=== PATIENT | female | born 1940 | race African-American/Black ===

== ENCOUNTER → 2019-04-19 | Outpatient (CLI) | payer BC, MEDICARE | END | disposition home or self-care (01) | LOC: MRI 10:02 | DX: M51.16 Intervertebral disc disorders with radiculopathy, lumbar region (principal); M47.26 Other spondylosis with radiculopathy, lumbar region; M41.86 Other forms of scoliosis, lumbar region | CPT/HCPCS: 72148 ==

== ENCOUNTER → 2020-02-07 | Outpatient (CLI) | payer BC | END | disposition home or self-care (01) | LOC: MRI 10:23 | PROVIDERS: ATTEND Specialist | DX: I67.82 Cerebral ischemia (principal); M50.223 Other cervical disc displacement at C6-C7 level; R51.9 Headache, unspecified | CPT/HCPCS: 70544; 70551; 70553; 72141 ==

== ENCOUNTER 2021-03-23 12:12 | Inpatient (IN) | payer MEDICARE, BC ==
[~2021-03-23] VITALS: Ht 165.1 cm; Wt 60.0 kg
[2021-03-23] MEDS ORDERED: SODIUM CHLORIDE 0.9% 1,000 ML IV ONE ×2 (12:45→16:45)
[2021-03-23 13:54] LABS: BASOPHILS % 0.3 % (0.0-2.0); EOSINOPHILS % 0.3 % (0.0-5.0); HEMATOCRIT. 34.5 % (36.0-48.0); LYMPHOCYTES % 7.4 % (20.0-50.0); MEAN CORPUSCULAR HEMOGLOBIN 26.3 pg (28.0-32.0); MEAN CORPUSCULAR VOLUME 82.4 fL (81.0-99.0); MEAN PLATELET VOLUME 10.5 fl (7.4-10.4); MONOCYTES % 7.2 % (2.0-8.0); NEUTROPHILS % 84.8 % (40.0-76.0); PLATELET 264 x1000/uL (130-400); RED BLOOD CELL COUNT 4.19 mill/uL (4.2-5.4); RED CELL DISTRIBUTION WIDTH 15.3 % (11.6-14.6)
[2021-03-23 14:01] LABS: ETHANOL BLOOD < 10 mg/dL
[2021-03-23 14:15] LABS: CHLORIDE 103 mEq/L (98-107)
[2021-03-23 14:25] LABS: T4 FREE 1.11 ng/dL (0.76-1.46)
[2021-03-23 14:33] LABS: CREATINE KINASE 2736 IU/L (26-192)
[2021-03-23 14:40] LABS: CHLORIDE 104 mEq/L (98-107)
[2021-03-23 14:59] LABS: CLARITY URINE CLEAR (CLEAR); COLOR URINE YELLOW (YELLOW); KETONES URINE TRACE (NEGATIVE); LEUKOCYTE ESTERASE URINE NEGATIVE (NEGATIVE); NITRITE URINE NEGATIVE (NEGATIVE); OCCULT BLOOD URINE 1+ (NEGATIVE); PH URINE 5.5 (4.5-8.0); PROTEIN URINE 2+ (NEGATIVE); SPECIFIC GRAVITY URINE 1.014 (1.005-1.030); UROBILINOGEN URINE 0.2 E.U./dL (0.2-1.0)
[2021-03-23 15:12] LABS: *AMPHETAMINES SCREEN URINE NEGATIVE (NEGATIVE); *BARBITURATES SCREEN URINE NEGATIVE (NEGATIVE); *BENZODIAZEPINES SCREEN URINE NEGATIVE (NEGATIVE); *COCAINE SCREEN URINE NEGATIVE (NEGATIVE); METHADONE URINE SCREEN NEGATIVE (NEGATIVE)
[2021-03-23 15:13] LABS: CANNABINOID URINE SCREEN NEGATIVE (NEGATIVE); OPIATES URINE SCREEN NEGATIVE (NEGATIVE); PHENCYCLIDINE URINE SCREEN NEGATIVE (NEGATIVE)
[2021-03-23] MEDS ORDERED: AZITHROMYCIN 500MG/250ML 250 ML IV ONE (17:00)
[2021-03-23] MEDS ORDERED: CEFTRIAXONE 1 G PREMIX 50 ML IV ONE (17:00)
[2021-03-23] MEDS ORDERED: CLONIDINE 0.1MG TABLET PO PRN (17:30)
[2021-03-23] MEDS ORDERED: ONDANSETRON HCL 4MG/2ML INJ IV PRN (17:30)
[2021-03-23] MEDS ORDERED: GUAIFENESIN 200MG/10ML SUGAR FREE UDC PO PRN (17:30)
[2021-03-23] MEDS ORDERED: DOCUSATE SODIUM 100MG CAPSULE PO PRN (17:30)
[2021-03-23] MEDS ORDERED: IPRATROPIUM/ALBUTEROL 0.5-3(2.5)MG/3ML NEB HHN PRN (17:30)
[2021-03-23] MEDS ORDERED: PIPERACILLIN/TAZ 3.375G PREMIX 50 ML IV NR (17:47)
[2021-03-23 18:28] LABS: INR 1.1; PROTHROMBIN TIME 11.7 sec (9.6-11.0)
[2021-03-23] MEDS ORDERED: ENOXAPARIN 60MG/0.6ML SYR SUBCUT SCH (19:00)
[2021-03-23] MEDS: LACTATED RINGERS 1,000 ML IV SCH (20:03)
[2021-03-23] MEDS ORDERED: PIPERACILLIN/TAZOBACTAM 3.375GM/50ML PREMIX IV SCH (22:00)
[2021-03-24] MEDS: LORAZEPAM 2MG/ML CPJ IV PRN (00:53)
[2021-03-24 01:42] VITALS: BP 146/72
[2021-03-24 04:00] VITALS: BP 134/59
[2021-03-24 05:58] LABS: BASOPHILS % 0.1 % (0.0-2.0); EOSINOPHILS % 0.2 % (0.0-5.0); HEMATOCRIT. 27.3 % (36.0-48.0); HEMOGLOBIN. 9.3 g/dL (12.0-16.0); LYMPHOCYTES % 13.3 % (20.0-50.0); MEAN CORPUSCULAR HEMOGLOBIN 27.5 pg (28.0-32.0); MEAN CORPUSCULAR VOLUME 81.2 fL (81.0-99.0); MEAN PLATELET VOLUME 10.4 fl (7.4-10.4); MONOCYTES % 9.7 % (2.0-8.0); NEUTROPHILS % 76.7 % (40.0-76.0); PLATELET 215 x1000/uL (130-400); RED BLOOD CELL COUNT 3.37 mill/uL (4.2-5.4); RED CELL DISTRIBUTION WIDTH 15.1 % (11.6-14.6)
[2021-03-24] MEDS ORDERED: ENOXAPARIN 60MG/0.6ML SYR SUBCUT SCH (06:00)
[2021-03-24] MEDS ORDERED: PIPERACILLIN/TAZOBACTAM 3.375G in DEXT 5% WATER 50ML IV SCH (06:00)
[2021-03-24] MEDS: LACTATED RINGERS 1,000 ML IV SCH ×5 (06:53→23:04)
[2021-03-24 08:04] VITALS: BP 148/78
[2021-03-24] MEDS: PIPERACILLIN/TAZOBACTAM 3.375G in DEXT 5% WATER 50ML IV SCH ×3 (08:35→21:20)
[2021-03-24 11:45] VITALS: BP 147/65
[2021-03-24 15:45] VITALS: BP 146/68
[2021-03-24] MEDS: ENOXAPARIN 60MG/0.6ML SYR SUBCUT SCH (18:02)
[2021-03-24 20:00] VITALS: BP 156/75
[2021-03-25] VITALS: BP 147/58
[2021-03-25 04:00] VITALS: BP 165/73
[2021-03-25] MEDS: PIPERACILLIN/TAZOBACTAM 3.375G in DEXT 5% WATER 50ML IV SCH ×2 (06:02→13:46)
[2021-03-25] MEDS: ENOXAPARIN 60MG/0.6ML SYR SUBCUT SCH ×2 (06:03→18:00)
[2021-03-25 08:00] VITALS: BP 174/76
[2021-03-25] MEDS: HYDRALAZINE 20MG/ML VIAL IV PRN (09:24)
[2021-03-25 12:00] VITALS: BP 142/74
[2021-03-25] MEDS: LACTATED RINGERS 1,000 ML IV SCH ×2 (13:46→13:47)
[2021-03-25 16:47] LABS: BASOPHILS % 0.8 % (0.0-2.0); EOSINOPHILS % 5.9 % (0.0-5.0); HEMATOCRIT. 29.1 % (36.0-48.0); HEMOGLOBIN. 9.6 g/dL (12.0-16.0); LYMPHOCYTES % 21.9 % (20.0-50.0); MEAN CORPUSCULAR HEMOGLOBIN 26.9 pg (28.0-32.0); MEAN CORPUSCULAR VOLUME 81.7 fL (81.0-99.0); MEAN PLATELET VOLUME 9.7 fl (7.4-10.4); MONOCYTES % 10.4 % (2.0-8.0); PLATELET 205 x1000/uL (130-400); RED BLOOD CELL COUNT 3.56 mill/uL (4.2-5.4); RED CELL DISTRIBUTION WIDTH 15.2 % (11.6-14.6)
[2021-03-25 17:22] LABS: CHLORIDE 108 mEq/L (98-107)
[2021-03-25 17:31] LABS: CREATINE KINASE 378 IU/L (26-192)
[2021-03-25] MEDS: HYDRALAZINE HCL 10MG TABLET PO SCH (23:01)
[2021-03-26] VITALS: BP 160/71
[2021-03-26 04:00] VITALS: BP 160/71
[2021-03-26] MEDS: ENOXAPARIN 60MG/0.6ML SYR SUBCUT SCH (05:19)
[2021-03-26] MEDS: HYDRALAZINE HCL 10MG TABLET PO SCH (05:20)
[2021-03-26 06:44] LABS: BASOPHILS % 0.6 % (0.0-2.0); EOSINOPHILS % 5.6 % (0.0-5.0); HEMATOCRIT. 29.2 % (36.0-48.0); HEMOGLOBIN. 9.7 g/dL (12.0-16.0); LYMPHOCYTES % 20.1 % (20.0-50.0); MEAN CORPUSCULAR HEMOGLOBIN 26.9 pg (28.0-32.0); MEAN CORPUSCULAR VOLUME 81.1 fL (81.0-99.0); MEAN PLATELET VOLUME 10.1 fl (7.4-10.4); MONOCYTES % 13.3 % (2.0-8.0); NEUTROPHILS % 60.4 % (40.0-76.0); PLATELET 215 x1000/uL (130-400); RED CELL DISTRIBUTION WIDTH 15.7 % (11.6-14.6)
[2021-03-26 07:50] LABS: CHLORIDE 106 mEq/L (98-107)
[2021-03-26 08:00] VITALS: BP 136/82
[2021-03-26 08:05] LABS: CREATINE KINASE 230 IU/L (26-192)
[2021-03-26 12:00] VITALS: BP 143/63
[2021-03-26] MEDS ORDERED: POTASSIUM CHLORIDE 20MEQ TABLET SR PO SCH (12:15)
[2021-03-26 16:00] VITALS: BP 159/80
[2021-03-26] MEDS: HYDRALAZINE HCL 25MG TABLET PO SCH ×2 (16:56→21:44)
[2021-03-26 17:32] LABS: CREATINE KINASE 173 IU/L (26-192)
[2021-03-26 17:33] LABS: CREATINE KINASE MB FRACTION < 1.0 ng/mL (0.5-3.6)
[2021-03-26 20:00] VITALS: BP 165/75
[2021-03-26] MEDS: LORAZEPAM 2MG/ML CPJ IV PRN (21:44)
[2021-03-27] VITALS (16 sets, daily range): BP systolic 147–177; BP diastolic 67–81
[2021-03-27] MEDS ORDERED: HALOPERIDOL LACTATE 5MG/ML VIAL IM SCH (01:00)
[2021-03-27] MEDS: HYDRALAZINE 20MG/ML VIAL IV PRN (03:32)
[2021-03-27 08:07] LABS: INR 1.1; PROTHROMBIN TIME 11.5 sec (9.6-11.0)
[2021-03-27 08:10] LABS: HEMATOCRIT. 28.1 % (36.0-48.0); HEMOGLOBIN. 9.8 g/dL (12.0-16.0); MEAN CORPUSCULAR HEMOGLOBIN 28.2 pg (28.0-32.0); MEAN CORPUSCULAR VOLUME 81.1 fL (81.0-99.0); MEAN PLATELET VOLUME 10.2 fl (7.4-10.4); PLATELET 216 x1000/uL (130-400); RED BLOOD CELL COUNT 3.46 mill/uL (4.2-5.4); RED CELL DISTRIBUTION WIDTH 15.4 % (11.6-14.6)
[2021-03-27 08:19] LABS: TOTAL IRON BINDING CAPACITY 454 ug/dL (250-450)
[2021-03-27 08:45] LABS: VITAMIN B12 SERUM 1419 pg/mL (211-911)
[2021-03-27] MEDS ORDERED: SODIUM BICARBONATE 4% (2.4MEQ) 5ML VIAL IV ONE (11:14)
[2021-03-27] MEDS ORDERED: LIDOCAINE HCL 1% 20ML VIAL (Pyxis) INJ ONE (11:14)
[2021-03-27] MEDS ORDERED: FENTANYL CITRATE/PF 50MCG/ML 2ML VIAL ONE (12:29)
[2021-03-27] MEDS: HYDRALAZINE HCL 25MG TABLET PO SCH ×2 (15:04→21:34)
[2021-03-27] MEDS: ARIPIPRAZOLE 2MG TABLET PO SCH (17:24)
[2021-03-27 17:46] LABS: PLATELET ESTIMATE NORMAL
[2021-03-27] MEDS: ACETAMINOPHEN 325MG TABLET PO PRN (21:34)
[2021-03-27] MEDS: MEMANTINE HCL 10MG TABLET PO SCH (21:34)
[2021-03-28] VITALS: BP 120/56
[2021-03-28 04:00] VITALS: BP 162/73
[2021-03-28] MEDS: HYDRALAZINE HCL 25MG TABLET PO SCH ×3 (06:11→20:59)
[2021-03-28 07:40] VITALS: BP 133/72
[2021-03-28 07:48] LABS: HEMATOCRIT. 27.5 % (36.0-48.0); HEMOGLOBIN. 9.3 g/dL (12.0-16.0); MEAN CORPUSCULAR HEMOGLOBIN 27.4 pg (28.0-32.0); MEAN CORPUSCULAR VOLUME 80.8 fL (81.0-99.0); MEAN PLATELET VOLUME 10.3 fl (7.4-10.4); PLATELET 225 x1000/uL (130-400); RED CELL DISTRIBUTION WIDTH 15.3 % (11.6-14.6)
[2021-03-28] MEDS: MEMANTINE HCL 10MG TABLET PO SCH ×2 (09:20→20:58)
[2021-03-28] MEDS: ARIPIPRAZOLE 2MG TABLET PO SCH (09:20)
[2021-03-28] MEDS: ASPIRIN 81MG EC TABLET PO SCH (09:20)
[2021-03-28 12:00] VITALS: BP 144/74
[2021-03-28] MEDS: LOSARTAN POTASSIUM 25 MG TABLET PO SCH (13:27)
[2021-03-28 16:00] VITALS: BP 168/84
[2021-03-28 20:00] VITALS: BP 159/75
[2021-03-28 20:53] LABS: PLATELET ESTIMATE NORMAL
[2021-03-28] MEDS: ACETAMINOPHEN 325MG TABLET PO PRN (20:58)
[2021-03-29] VITALS (7 sets, daily range): BP systolic 126–155; BP diastolic 60–86
[2021-03-29] MEDS: HYDRALAZINE HCL 25MG TABLET PO SCH ×2 (05:56→16:25)
[2021-03-29 07:15] LABS: BASOPHILS % 0.7 % (0.0-2.0); EOSINOPHILS % 4.7 % (0.0-5.0); HEMATOCRIT. 29.9 % (36.0-48.0); HEMOGLOBIN. 9.9 g/dL (12.0-16.0); LYMPHOCYTES % 17.4 % (20.0-50.0); MEAN CORPUSCULAR HEMOGLOBIN 26.9 pg (28.0-32.0); MEAN CORPUSCULAR VOLUME 81.3 fL (81.0-99.0); MEAN PLATELET VOLUME 10.1 fl (7.4-10.4); MONOCYTES % 14.6 % (2.0-8.0); NEUTROPHILS % 62.6 % (40.0-76.0); PLATELET 261 x1000/uL (130-400); RED BLOOD CELL COUNT 3.68 mill/uL (4.2-5.4); RED CELL DISTRIBUTION WIDTH 15.3 % (11.6-14.6)
[2021-03-29] MEDS: ARIPIPRAZOLE 2MG TABLET PO SCH (09:12)
[2021-03-29] MEDS: LOSARTAN POTASSIUM 25 MG TABLET PO SCH (09:12)
[2021-03-29] MEDS: ASPIRIN 81MG EC TABLET PO SCH (09:13)
[2021-03-29] MEDS: MEMANTINE HCL 10MG TABLET PO SCH ×2 (09:13→20:52)
[2021-03-29] MEDS ORDERED: FERROUS SULFATE 300MG/5ML UDC PO SCH (17:50)
[2021-03-29] MEDS: ACETAMINOPHEN 325MG TABLET PO PRN (20:53)
[2021-03-29] MEDS ORDERED: LATANOPROST 0.005% OPHTH DROPS 2.5ML LEFTEYE SCH (21:00)
[2021-03-30] MEDS ORDERED: BRIMONIDINE 0.2% OPHTH DROPS 5ML RIGHTEYE SCH (09:00)
== END 2021-03-29 21:45 | DRG 180 ==
LOC: ER 12:12 → 6WST 16:44 → ENRESERV 03-24 00:01
PROVIDERS: ADMIT Family Medicine Adult Medicine; ATTEND Family Medicine Adult Medicine
PROC: 0BBJ3ZX Excision of Left Lower Lung Lobe, Percutaneous Approach, Diagnostic (ICD-10-PCS; principal; 2021-03-27)
PROC: 0GBH3ZX Excision of Right Thyroid Gland Lobe, Percutaneous Approach, Diagnostic (ICD-10-PCS; 2021-03-27)
DX: C34.32 Malignant neoplasm of lower lobe, left bronchus or lung (principal); G93.41 Metabolic encephalopathy; M62.82 Rhabdomyolysis; I48.91 Unspecified atrial fibrillation; F03.90 Unspecified dementia, unspecified severity, without behavioral disturbance, psychotic disturbance, mood disturbance, and anxiety; M41.9 Scoliosis, unspecified; N18.9 Chronic kidney disease, unspecified; J39.8 Other specified diseases of upper respiratory tract; I25.10 Atherosclerotic heart disease of native coronary artery without angina pectoris; Z96.653 Presence of artificial knee joint, bilateral; R35.0 Frequency of micturition; I34.0 Nonrheumatic mitral (valve) insufficiency; E04.1 Nontoxic single thyroid nodule; R74.01 Elevation of levels of liver transaminase levels; E78.5 Hyperlipidemia, unspecified; Z20.822 Contact with and (suspected) exposure to COVID-19; D50.9 Iron deficiency anemia, unspecified; M54.16 Radiculopathy, lumbar region; I27.20 Pulmonary hypertension, unspecified; M19.90 Unspecified osteoarthritis, unspecified site; I12.9 Hypertensive chronic kidney disease with stage 1 through stage 4 chronic kidney disease, or unspecified chronic kidney disease; R74.8 Abnormal levels of other serum enzymes; Z95.1 Presence of aortocoronary bypass graft; Z80.1 Family history of malignant neoplasm of trachea, bronchus and lung; Z90.710 Acquired absence of both cervix and uterus; R53.81 Other malaise; R26.9 Unspecified abnormalities of gait and mobility
CPT/HCPCS: 10005; 36415; 70551; 71045; 71250; 76536; 77012; 80048; 80053; 80305; 80307; 80320; 80329; 81003; 82140; 82378; 82550; 82553; 82607; 82962; 83540; 83550; 83605; 83880; 84145; 84439; 84443; 84481; 84484; 85025; 87426; 88305; 88312; 92610; 93005; 93306; 93880; 93970; 97116; 97162; 97166; 99152; 99153; 99285; J0360; J0456; J0696; J1630; J1650; J2060; J2543; J3010; J3490; J7030; J7040; J7060; J7120; G0480; G0500

== ENCOUNTER 2021-03-29 21:44 | Inpatient (IN) | payer MEDICARE, BC ==
[~2021-03-29] VITALS: Ht 165.1 cm; Wt 60.0 kg
[2021-03-29 22:00] VITALS: BP 151/73
[2021-03-29] MEDS ORDERED: IPRATROPIUM/ALBUTEROL 0.5-3(2.5)MG/3ML NEB HHN PRN (22:15)
[2021-03-29] MEDS ORDERED: ONDANSETRON HCL 4MG/2ML INJ IV PRN (22:15)
[2021-03-29 22:42] VITALS: BP 151/73
[2021-03-29] MEDS: HYDRALAZINE HCL 25MG TABLET PO SCH (23:58)
[2021-03-30] MEDS: HYDRALAZINE HCL 25MG TABLET PO SCH ×3 (06:06→21:19)
[2021-03-30 06:42] LABS: CHLORIDE 112 mEq/L (98-107)
[2021-03-30 07:12] LABS: BASOPHILS % 0.6 % (0.0-2.0); EOSINOPHILS % 6.1 % (0.0-5.0); HEMATOCRIT. 28.2 % (36.0-48.0); HEMOGLOBIN. 9.1 g/dL (12.0-16.0); MEAN CORPUSCULAR HEMOGLOBIN 26.5 pg (28.0-32.0); MEAN CORPUSCULAR VOLUME 81.8 fL (81.0-99.0); MEAN PLATELET VOLUME 10.1 fl (7.4-10.4); MONOCYTES % 14.8 % (2.0-8.0); NEUTROPHILS % 57.5 % (40.0-76.0); PLATELET 259 x1000/uL (130-400); RED BLOOD CELL COUNT 3.44 mill/uL (4.2-5.4); RED CELL DISTRIBUTION WIDTH 15.4 % (11.6-14.6)
[2021-03-30 08:00] VITALS: BP 149/74
[2021-03-30] MEDS: DOCUSATE SODIUM 100MG CAPSULE PO PRN ×2 (10:20→17:31)
[2021-03-30] MEDS: MEMANTINE HCL 10MG TABLET PO SCH ×2 (10:20→21:19)
[2021-03-30] MEDS: ASPIRIN 81MG EC TABLET PO SCH (10:20)
[2021-03-30] MEDS: LOSARTAN POTASSIUM 25 MG TABLET PO SCH (10:20)
[2021-03-30] MEDS: ARIPIPRAZOLE 2MG TABLET PO SCH (10:21)
[2021-03-30] MEDS: FERROUS SULFATE 300MG/5ML UDC PO SCH ×3 (10:21→17:31)
[2021-03-30] MEDS: BRIMONIDINE 0.2% OPHTH DROPS 5ML RIGHTEYE SCH ×2 (10:23→17:42)
[2021-03-30] MEDS: GUAIFENESIN 200MG/10ML SUGAR FREE UDC PO PRN (14:43)
[2021-03-30] MEDS: ACETAMINOPHEN 325MG TABLET PO PRN (17:32)
[2021-03-30 20:00] VITALS: BP 154/71
[2021-03-30] MEDS: LATANOPROST 0.005% OPHTH DROPS 2.5ML LEFTEYE SCH (21:31)
[2021-03-31] MEDS: HYDRALAZINE HCL 25MG TABLET PO SCH ×3 (04:55→20:59)
[2021-03-31 06:55] LABS: CHLORIDE 109 mEq/L (98-107)
[2021-03-31 07:01] LABS: TOTAL IRON BINDING CAPACITY 310 ug/dL (250-450)
[2021-03-31 07:11] LABS: FOLIC ACID (FOLATE) SERUM 19.7 ng/mL (>5.38)
[2021-03-31 07:12] LABS: BASOPHILS % 0.8 % (0.0-2.0); EOSINOPHILS % 6.5 % (0.0-5.0); HEMATOCRIT. 28.3 % (36.0-48.0); HEMOGLOBIN. 9.4 g/dL (12.0-16.0); LYMPHOCYTES % 24.7 % (20.0-50.0); MEAN CORPUSCULAR HEMOGLOBIN 26.8 pg (28.0-32.0); MEAN CORPUSCULAR VOLUME 81.1 fL (81.0-99.0); MEAN PLATELET VOLUME 10.1 fl (7.4-10.4); MONOCYTES % 14.8 % (2.0-8.0); NEUTROPHILS % 53.2 % (40.0-76.0); PLATELET 296 x1000/uL (130-400); RED BLOOD CELL COUNT 3.49 mill/uL (4.2-5.4); RED CELL DISTRIBUTION WIDTH 15.6 % (11.6-14.6)
[2021-03-31 08:00] VITALS: BP 140/69
[2021-03-31] MEDS: FERROUS SULFATE 300MG/5ML UDC PO SCH ×3 (08:40→17:38)
[2021-03-31] MEDS: MEMANTINE HCL 10MG TABLET PO SCH ×2 (08:40→20:59)
[2021-03-31] MEDS: ARIPIPRAZOLE 2MG TABLET PO SCH (08:40)
[2021-03-31] MEDS: LOSARTAN POTASSIUM 25 MG TABLET PO SCH (08:40)
[2021-03-31] MEDS: ASPIRIN 81MG EC TABLET PO SCH (08:41)
[2021-03-31] MEDS: BRIMONIDINE 0.2% OPHTH DROPS 5ML RIGHTEYE SCH ×2 (08:46→17:38)
[2021-03-31 20:00] VITALS: BP 150/80
[2021-03-31] MEDS: LATANOPROST 0.005% OPHTH DROPS 2.5ML LEFTEYE SCH (20:59)
[2021-03-31] MEDS: CLONIDINE 0.1MG TABLET PO PRN (23:09)
[2021-04-01] MEDS: HYDRALAZINE HCL 25MG TABLET PO SCH ×3 (05:11→20:42)
[2021-04-01 07:26] LABS: BASOPHILS % 0.8 % (0.0-2.0); EOSINOPHILS % 5.5 % (0.0-5.0); HEMATOCRIT. 26.9 % (36.0-48.0); LYMPHOCYTES % 21.8 % (20.0-50.0); MEAN CORPUSCULAR HEMOGLOBIN 27.1 pg (28.0-32.0); MEAN CORPUSCULAR VOLUME 81.2 fL (81.0-99.0); MEAN PLATELET VOLUME 9.8 fl (7.4-10.4); MONOCYTES % 14.9 % (2.0-8.0); PLATELET 284 x1000/uL (130-400); RED BLOOD CELL COUNT 3.32 mill/uL (4.2-5.4); RED CELL DISTRIBUTION WIDTH 15.9 % (11.6-14.6)
[2021-04-01 08:00] VITALS: BP 165/82
[2021-04-01] MEDS: FERROUS SULFATE 300MG/5ML UDC PO SCH ×3 (09:40→18:16)
[2021-04-01] MEDS: ASPIRIN 81MG EC TABLET PO SCH (09:40)
[2021-04-01] MEDS: ARIPIPRAZOLE 2MG TABLET PO SCH (09:41)
[2021-04-01] MEDS: LOSARTAN POTASSIUM 25 MG TABLET PO SCH (09:41)
[2021-04-01] MEDS: MEMANTINE HCL 10MG TABLET PO SCH ×2 (09:41→20:42)
[2021-04-01] MEDS: BRIMONIDINE 0.2% OPHTH DROPS 5ML RIGHTEYE SCH ×2 (09:44→18:16)
[2021-04-01 20:00] VITALS: BP 161/74
[2021-04-01] MEDS: CLONIDINE 0.1MG TABLET PO PRN (20:42)
[2021-04-01] MEDS: ACETAMINOPHEN 325MG TABLET PO PRN (20:43)
[2021-04-01] MEDS: LATANOPROST 0.005% OPHTH DROPS 2.5ML LEFTEYE SCH (20:47)
[2021-04-02] MEDS: HYDRALAZINE HCL 25MG TABLET PO SCH ×3 (05:15→21:05)
[2021-04-02 07:48] VITALS: BP 135/69
[2021-04-02] MEDS: ASPIRIN 81MG EC TABLET PO SCH (09:21)
[2021-04-02] MEDS: ARIPIPRAZOLE 2MG TABLET PO SCH (09:21)
[2021-04-02] MEDS: BRIMONIDINE 0.2% OPHTH DROPS 5ML RIGHTEYE SCH ×2 (09:21→17:22)
[2021-04-02] MEDS: MEMANTINE HCL 10MG TABLET PO SCH ×2 (09:21→21:04)
[2021-04-02] MEDS: FERROUS SULFATE 300MG/5ML UDC PO SCH ×3 (09:21→17:22)
[2021-04-02] MEDS: LOSARTAN POTASSIUM 25 MG TABLET PO SCH (09:21)
[2021-04-02 20:00] VITALS: BP 164/73
[2021-04-02] MEDS: LATANOPROST 0.005% OPHTH DROPS 2.5ML LEFTEYE SCH (21:06)
[2021-04-02] MEDS: GUAIFENESIN 200MG/10ML SUGAR FREE UDC PO PRN (21:12)
[2021-04-02 22:00] VITALS: BP 132/72
[2021-04-03 03:55] LABS: CLARITY URINE CLEAR (CLEAR); COLOR URINE YELLOW (YELLOW); KETONES URINE NEGATIVE (NEGATIVE); LEUKOCYTE ESTERASE URINE NEGATIVE (NEGATIVE); NITRITE URINE NEGATIVE (NEGATIVE); OCCULT BLOOD URINE NEGATIVE (NEGATIVE); PH URINE 5.5 (4.5-8.0); PROTEIN URINE 1+ (NEGATIVE); SPECIFIC GRAVITY URINE 1.019 (1.005-1.030); UROBILINOGEN URINE 0.2 E.U./dL (0.2-1.0)
[2021-04-03] MEDS: HYDRALAZINE HCL 25MG TABLET PO SCH ×3 (05:55→21:47)
[2021-04-03 07:33] LABS: BASOPHILS % 0.6 % (0.0-2.0); EOSINOPHILS % 3.3 % (0.0-5.0); HEMATOCRIT. 28.3 % (36.0-48.0); HEMOGLOBIN. 9.3 g/dL (12.0-16.0); LYMPHOCYTES % 22.2 % (20.0-50.0); MEAN CORPUSCULAR HEMOGLOBIN 27.1 pg (28.0-32.0); MEAN CORPUSCULAR VOLUME 82.7 fL (81.0-99.0); MEAN PLATELET VOLUME 10.1 fl (7.4-10.4); MONOCYTES % 13.1 % (2.0-8.0); NEUTROPHILS % 60.8 % (40.0-76.0); PLATELET 332 x1000/uL (130-400); RED BLOOD CELL COUNT 3.43 mill/uL (4.2-5.4); RED CELL DISTRIBUTION WIDTH 15.9 % (11.6-14.6)
[2021-04-03 08:00] VITALS: BP 154/74
[2021-04-03] MEDS: ARIPIPRAZOLE 2MG TABLET PO SCH (09:03)
[2021-04-03] MEDS: FERROUS SULFATE 300MG/5ML UDC PO SCH ×3 (09:03→17:27)
[2021-04-03] MEDS: ASPIRIN 81MG EC TABLET PO SCH (09:03)
[2021-04-03] MEDS: BRIMONIDINE 0.2% OPHTH DROPS 5ML RIGHTEYE SCH ×2 (09:03→17:27)
[2021-04-03] MEDS: LOSARTAN POTASSIUM 25 MG TABLET PO SCH (09:03)
[2021-04-03] MEDS: MEMANTINE HCL 10MG TABLET PO SCH ×2 (09:03→20:27)
[2021-04-03 20:00] VITALS: BP 150/70
[2021-04-03] MEDS: LATANOPROST 0.005% OPHTH DROPS 2.5ML LEFTEYE SCH (20:27)
[2021-04-04] MEDS: HYDRALAZINE HCL 25MG TABLET PO SCH ×3 (06:35→20:20)
[2021-04-04 08:00] VITALS: BP 136/68
[2021-04-04] MEDS: FERROUS SULFATE 300MG/5ML UDC PO SCH ×3 (08:27→16:08)
[2021-04-04] MEDS: BRIMONIDINE 0.2% OPHTH DROPS 5ML RIGHTEYE SCH ×2 (08:27→16:08)
[2021-04-04] MEDS: LOSARTAN POTASSIUM 25 MG TABLET PO SCH (08:28)
[2021-04-04] MEDS: MEMANTINE HCL 10MG TABLET PO SCH ×2 (08:28→20:20)
[2021-04-04] MEDS: ASPIRIN 81MG EC TABLET PO SCH (08:28)
[2021-04-04] MEDS: ARIPIPRAZOLE 2MG TABLET PO SCH (08:28)
[2021-04-04] MEDS: GUAIFENESIN 200MG/10ML SUGAR FREE UDC PO PRN (15:41)
[2021-04-04 20:00] VITALS: BP 191/89
[2021-04-04] MEDS: LATANOPROST 0.005% OPHTH DROPS 2.5ML LEFTEYE SCH (20:19)
[2021-04-04] MEDS: CLONIDINE 0.1MG TABLET PO PRN (20:20)
[2021-04-05 02:47] VITALS: BP 157/69
[2021-04-05] MEDS: HYDRALAZINE HCL 25MG TABLET PO SCH ×3 (05:42→21:19)
[2021-04-05 07:50] VITALS: BP 149/86
[2021-04-05] MEDS: LOSARTAN POTASSIUM 25 MG TABLET PO SCH (10:23)
[2021-04-05] MEDS: LATANOPROST 0.005% OPHTH DROPS 2.5ML LEFTEYE SCH ×2 (10:23→20:57)
[2021-04-05] MEDS: MEMANTINE HCL 10MG TABLET PO SCH ×2 (10:23→20:57)
[2021-04-05] MEDS: ASPIRIN 81MG EC TABLET PO SCH (10:23)
[2021-04-05] MEDS: FERROUS SULFATE 300MG/5ML UDC PO SCH ×3 (10:23→17:15)
[2021-04-05] MEDS: ARIPIPRAZOLE 2MG TABLET PO SCH (10:23)
[2021-04-05] MEDS: BRIMONIDINE 0.2% OPHTH DROPS 5ML RIGHTEYE SCH ×2 (10:24→17:15)
[2021-04-05] MEDS: GUAIFENESIN 200MG/10ML SUGAR FREE UDC PO PRN ×2 (17:15→21:18)
[2021-04-05] MEDS ORDERED: ASPI-1406 PO (18:10)
[2021-04-05] MEDS ORDERED: AMLO-498 MT (18:10)
[2021-04-05] MEDS ORDERED: BRIM.2 BOTHEYE (18:10)
[2021-04-05] MEDS ORDERED: FE300LUD PO (18:10)
[2021-04-05] MEDS ORDERED: MEMA10TA2 PO (18:10)
[2021-04-05] MEDS ORDERED: XALAO BOTHEYE (18:10)
[2021-04-05] MEDS ORDERED: ARIP2TAB3 PO (18:10)
[2021-04-05 20:00] VITALS: BP 165/85
[2021-04-05 21:00] VITALS: BP 148/68
[2021-04-06] MEDS: HYDRALAZINE HCL 25MG TABLET PO SCH (05:23)
[2021-04-06 08:00] VITALS: BP 152/74
[2021-04-06] MEDS: ARIPIPRAZOLE 2MG TABLET PO SCH (09:47)
[2021-04-06] MEDS: LOSARTAN POTASSIUM 25 MG TABLET PO SCH (09:48)
[2021-04-06] MEDS: FERROUS SULFATE 300MG/5ML UDC PO SCH (09:48)
[2021-04-06] MEDS: MEMANTINE HCL 10MG TABLET PO SCH (09:48)
[2021-04-06] MEDS: ASPIRIN 81MG EC TABLET PO SCH (09:48)
[2021-04-06] MEDS: BRIMONIDINE 0.2% OPHTH DROPS 5ML RIGHTEYE SCH (09:54)
[2021-04-06 11:07] VITALS: BP 152/74
[2021-04-06 14:07] LABS: 25-HYDROXY VITAMIN D3 49 ng/mL (.)
== END 2021-04-06 11:35 | disposition home health service (06) | DRG 71 ==
PROVIDERS: ADMIT Physical Medicine & Rehabilitation Spinal Cord Injury Medicine; ATTEND Family Medicine Adult Medicine
DX: G93.41 Metabolic encephalopathy (principal); C34.92 Malignant neoplasm of unspecified part of left bronchus or lung; M62.82 Rhabdomyolysis; J39.8 Other specified diseases of upper respiratory tract; N18.9 Chronic kidney disease, unspecified; I25.10 Atherosclerotic heart disease of native coronary artery without angina pectoris; I34.0 Nonrheumatic mitral (valve) insufficiency; I12.9 Hypertensive chronic kidney disease with stage 1 through stage 4 chronic kidney disease, or unspecified chronic kidney disease; E78.5 Hyperlipidemia, unspecified; E04.1 Nontoxic single thyroid nodule; Z96.653 Presence of artificial knee joint, bilateral; Z77.22 Contact with and (suspected) exposure to environmental tobacco smoke (acute) (chronic); R35.0 Frequency of micturition; R29.6 Repeated falls; R53.81 Other malaise; R26.9 Unspecified abnormalities of gait and mobility; M54.16 Radiculopathy, lumbar region; D50.9 Iron deficiency anemia, unspecified; D63.8 Anemia in other chronic diseases classified elsewhere; R74.01 Elevation of levels of liver transaminase levels; I27.20 Pulmonary hypertension, unspecified; I48.91 Unspecified atrial fibrillation; F03.90 Unspecified dementia, unspecified severity, without behavioral disturbance, psychotic disturbance, mood disturbance, and anxiety; F43.11 Post-traumatic stress disorder, acute; Z95.1 Presence of aortocoronary bypass graft; Z90.710 Acquired absence of both cervix and uterus; Z80.1 Family history of malignant neoplasm of trachea, bronchus and lung
CPT/HCPCS: 36415; 80048; 80053; 81003; 82306; 82607; 82728; 82746; 83540; 83550; 84134; 84443; 85025; 92523; 92610; 93970; 97110; 97116; 97150; 97163; 97166; 97530; 97535